=== PATIENT | male | born 1970 | race Caucasian/White ===

== ENCOUNTER 2018-01-22 06:09 | Emergency (ER) | payer OTHER ==
[~2018-01-22] VITALS: Ht 182.9 cm; Wt 117.9 kg
[~2018-01-22 06:09] MED LIST: COUMADIN PO; PERCOCET 5-3251 EACH PO
[2018-01-22 06:54] LABS: ABSOLUTE BASOPHILS 0.1 thou/uL (0.0-0.2); ABSOLUTE LYMPHOCYTES 1.9 thou/uL (0.8-5.3); ABSOLUTE MONOCYTES 0.3 thou/uL (0.0-1.2); ABSOLUTE NEUTROPHILS 8.1 thou/uL (1.6-8.1); BASOPHILS 0.6 %; EOSINOPHILS 0.2 %; HEMATOCRIT 41.9 % (42.0-52.0); HEMOGLOBIN 14.4 gm/dL (14.0-18.0); LYMPHOCYTES 18.1 %; MCH 29.8 pg (26.0-34.0); MCHC 34.4 g/dL (28.0-37.0); MCV 86.6 fL (80.0-100.0); MONOCYTES 2.6 %; NUCLEATED RBCS 0 /100WBC; PLATELET COUNT* 276 thou/uL (150-400); POLYS 78.5 %; RBC 4.83 mil/uL (4.50-6.00); RDW-CV 13.5 % (10.5-14.5); WBC 10.3 thou/uL (4.0-11.0)
[2018-01-22 06:58] LABS: ANION GAP 11 mmol/L (7-16); BUN 18 mg/dL (7-18); CALCIUM 8.8 mg/dL (8.5-10.1); CHLORIDE 103 mmol/L (98-107); CO2 25 mmol/L (21-32); GLUCOSE 115 mg/dL (70-99); POTASSIUM 3.7 mmol/L (3.5-5.1); SODIUM 139 mmol/L (136-145)
[2018-01-22 07:05] LABS: ALKALINE PHOSPHATASE 133 U/L (46-116); SGOT 19 U/L (15-37); SGPT 40 U/L (30-65); TOTAL BILIRUBIN 0.2 mg/dL (<0.1-1.0); TOTAL PROTEIN 7.5 g/dL (6.4-8.2); TROPONIN-I LEVEL <0.06 ng/mL (<0.06)
[2018-01-22 07:06] LABS: APTT 38.1 Seconds (25.0-31.3); INR 2.5; PROTIME 24.3 Seconds (9.20-11.50)
[2018-01-22 09:28] VITALS: BP 104/58
--- NOTE | 2018-01-22 14:10 | EKG ---
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 : 1970 Requested By: Patricia Fernandez Order Number: [id number] MD: Ravindra Spencer Measurements Intervals [place] Rate: 83 P: 66 [place]: 188 QRS: 60 QRSD: 85 T: 44 QT: 374 QTc: 440 Interpretive Statements Sinus rhythm Abnormal R-wave progression, early transition Minimal ST elevation, inferior leads No previous ECG available for comparison Electronically Signed On 01-22-2018 14:09:47 CDT by Ravindra Spencer [email or web address] <ELECTRONICALLY SIGNED> By: Ravindra Spencer MD, [facility] 01/22/18 1409 7 7 Ravindra Spencer MD, [facility] /EPI
--- NOTE | 2018-01-22 14:11 | EKG ---
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
== END 2018-01-22 09:28 | disposition home or self-care (01) ==
LOC: M.ERS 06:09
PROVIDERS: Personal Emergency Response Attendant
DX: R06.02 Shortness of breath (principal); R07.89 Other chest pain; F17.210 Nicotine dependence, cigarettes, uncomplicated